=== PATIENT | female | born 1965 | race Caucasian/White ===

== ENCOUNTER → 2017-12-19 | Outpatient (CLI) | payer MEDICARE, MEDICAID ==
[~2017-12-19] MED LIST: ALDACTONE25 MG PO; ASPIR 8181 MG PO; ASPIRIN325 PO; AUGMENTIN 875-1 EACH PO; BUPROPION PO; BUTALB-ACETAMI1 EACH PO; CARVEDILOL12.5 MG PO; CARVEDILOL6.25 MG PO; CLOPIDOGREL75 MG PO; COREG6.25 MG PO; COUMADIN 3 MG TA3 M1 PO; DOXYCYCLINE 10100 MG PO; ELIQUIS5 MG PO; EPA DHA PO; FLONASE 0.05%50 MCG NASAL; HYDROCHLOROTHIA25 M1 PO; IBUPROFEN 800800 M1 PO; LASIX 40 MG TAB40 M2 PO; LISINOPRIL5 MG PO; MYRBETRIQ50 MG PO; OMEPRAZOLE40 MG PO; ONE-A-DAY WOMENS PO; PACERONE 200 M200 M1 PO; PAXIL10 MG PO; POTASSIUM20 PO; SORINE 80 MG TA80 M1 PO; TYLENOL325 MG PO; ZAROXOLYN 5MG TA5 MG PO; ZOLOFT100 MG PO; [UNRECOGNIZED DRUG - OTHER] PO; [UNRECOGNIZED DRUG - OTHER] PO
[2017-12-19 09:49] LABS: CALCIUM 9.6 mg/dL (8.5-10.1); CREATININE 0.9 mg/dL (0.6-1.3); POTASSIUM 4.2 mmol/L (3.5-5.1)
== END ==
LOC: M.LAB 09:15
PROVIDERS: Internal Medicine Cardiovascular Disease
DX: I48.0 Paroxysmal atrial fibrillation (principal); I13.0 Hypertensive heart and chronic kidney disease with heart failure and stage 1 through stage 4 chronic kidney disease, or unspecified chronic kidney disease; N18.1 Chronic kidney disease, stage 1; I50.43 Acute on chronic combined systolic (congestive) and diastolic (congestive) heart failure; E78.5 Hyperlipidemia, unspecified; I42.9 Cardiomyopathy, unspecified; Z90.49 Acquired absence of other specified parts of digestive tract; Z98.890 Other specified postprocedural states; Z90.710 Acquired absence of both cervix and uterus

== ENCOUNTER 2018-02-16 14:51 | Inpatient (IN) | payer MEDICARE, MEDICAID ==
[~2018-02-16] VITALS: Ht 162.6 cm; Wt 135.6 kg
[~2018-02-16 14:51] MED LIST changes: -AUGMENTIN 875-1 EACH PO; -CLOPIDOGREL75 MG PO; -MYRBETRIQ50 MG PO
[2018-02-16 15:08] VITALS: BP 123/78
[2018-02-16 15:36] LABS: ABSOLUTE BASOPHILS 0.1 thou/uL (0.0-0.2); ABSOLUTE EOSINOPHILS 0.3 thou/uL (0.0-0.7); ABSOLUTE LYMPHOCYTES 2.4 thou/uL (0.8-5.3); ABSOLUTE MONOCYTES 0.6 thou/uL (0.0-1.2); ABSOLUTE NEUTROPHILS 5.3 thou/uL (1.6-8.1); BASOPHILS 0.9 %; EOSINOPHILS 3.8 %; HEMATOCRIT 29.5 % (37.0-47.0); LYMPHOCYTES 27.5 %; MCH 30.9 pg (26.0-34.0); MCHC 33.9 g/dL (28.0-37.0); MCV 91.1 fL (80.0-100.0); MONOCYTES 7.3 %; MPV 7.2 fl. (7.2-11.1); NUCLEATED RBCS 0 /100WBC; PLATELET COUNT* 324 thou/uL (150-400); POLYS 60.5 %; RBC 3.24 mil/uL (4.20-5.00); RDW-CV 14.1 % (10.5-14.5); WBC 8.8 thou/uL (4.0-11.0)
[2018-02-16 15:46] LABS: CALCIUM 10.3 mg/dL (8.5-10.1); CREATININE 0.9 mg/dL (0.6-1.3)
[2018-02-16 15:55] LABS: ALBUMIN 3.4 g/dL (3.4-5.0); TOTAL BILIRUBIN 0.2 mg/dL (<0.1-1.0); TOTAL PROTEIN 8.2 g/dL (6.4-8.2)
[2018-02-16 17:07] LABS: URINE BILIRUBIN NEGATIVE (Negative); URINE BLOOD TRACE (Negative); URINE CLARITY CLEAR; URINE COLOR YELLOW; URINE GLUCOSE-RANDOM NEGATIVE (Negative); URINE KETONES NEGATIVE (Negative); URINE LEUKOCYTES-REFLEX NEGATIVE (Negative); URINE NITRITE-REFLEX NEGATIVE (Negative); URINE PROTEIN TRACE (Negative); URINE SPECIFIC GRAVITY 1.015 (1.005-1.030); URINE UROBILINOGEN 0.2 E.U./dl (0.2-1.0)
[2018-02-16 18:15] VITALS: BP 128/72
[2018-02-16 18:51] VITALS: BP 140/66
[2018-02-16 19:50] VITALS: BP 130/61
[2018-02-17 05:46] LABS: ABSOLUTE BASOPHILS 0.1 thou/uL (0.0-0.2); ABSOLUTE EOSINOPHILS 0.3 thou/uL (0.0-0.7); ABSOLUTE LYMPHOCYTES 2.1 thou/uL (0.8-5.3); ABSOLUTE MONOCYTES 0.6 thou/uL (0.0-1.2); ABSOLUTE NEUTROPHILS 3.3 thou/uL (1.6-8.1); BASOPHILS 0.9 %; EOSINOPHILS 5.4 %; HEMATOCRIT 26.1 % (37.0-47.0); HEMOGLOBIN 9.1 gm/dL (12.0-15.0); LYMPHOCYTES 32.3 %; MCH 31.3 pg (26.0-34.0); MCHC 34.7 g/dL (28.0-37.0); MCV 90.4 fL (80.0-100.0); MONOCYTES 9.5 %; MPV 7.5 fl. (7.2-11.1); NUCLEATED RBCS 0 /100WBC; PLATELET COUNT* 284 thou/uL (150-400); POLYS 51.9 %; RBC 2.89 mil/uL (4.20-5.00); WBC 6.4 thou/uL (4.0-11.0)
[2018-02-17 06:02] LABS: CALCIUM 9.3 mg/dL (8.5-10.1); CREATININE 0.7 mg/dL (0.6-1.3); POTASSIUM 3.3 mmol/L (3.5-5.1); TOTAL BILIRUBIN 0.2 mg/dL (<0.1-1.0); TOTAL PROTEIN 6.2 g/dL (6.4-8.2)
[2018-02-17 07:50] VITALS: BP 136/64
[2018-02-17 16:00] VITALS: BP 120/51
[2018-02-17 23:33] VITALS: BP 115/51
[2018-02-18 04:46] LABS: ABSOLUTE BASOPHILS 0.1 thou/uL (0.0-0.2); ABSOLUTE EOSINOPHILS 0.3 thou/uL (0.0-0.7); ABSOLUTE LYMPHOCYTES 2.2 thou/uL (0.8-5.3); ABSOLUTE MONOCYTES 0.5 thou/uL (0.0-1.2); BASOPHILS 1.1 %; EOSINOPHILS 5.7 %; HEMATOCRIT 26.1 % (37.0-47.0); LYMPHOCYTES 35.5 %; MCHC 34.4 g/dL (28.0-37.0); MCV 90.2 fL (80.0-100.0); MONOCYTES 8.4 %; MPV 7.2 fl. (7.2-11.1); NUCLEATED RBCS 0 /100WBC; PLATELET COUNT* 284 thou/uL (150-400); POLYS 49.3 %; RDW-CV 14.3 % (10.5-14.5); WBC 6.2 thou/uL (4.0-11.0)
[2018-02-18 04:58] LABS: ALBUMIN 2.8 g/dL (3.4-5.0); CALCIUM 8.8 mg/dL (8.5-10.1); CREATININE 0.7 mg/dL (0.6-1.3); POTASSIUM 3.8 mmol/L (3.5-5.1); TOTAL BILIRUBIN 0.3 mg/dL (<0.1-1.0); TOTAL PROTEIN 5.8 g/dL (6.4-8.2)
[2018-02-18 08:28] VITALS: BP 132/68
[2018-02-18 13:14] VITALS: BP 124/61
[2018-02-18 14:42] VITALS: BP 110/60
[2018-02-18 19:41] VITALS: BP 127/51
[2018-02-19 10:33] VITALS: BP 126/64
[2018-02-19 15:58] VITALS: BP 146/70
[2018-02-19 23:07] VITALS: BP 116/54
[2018-02-20 08:00] VITALS: BP 128/73
[2018-02-20] MEDS ORDERED: AUGMENTIN 875-1 EACH PO (14:54)
[2018-02-20] MEDS ORDERED: PACERONE 200 M200 M1 PO (14:56)
[2018-02-20 15:09] VITALS: BP 128/73
== END 2018-02-20 15:25 | disposition home or self-care (01) | DRG 602 ==
LOC: M.ERS 14:51 → M.3W 16:55 → M.TBA-ER 16:55 → M.3W 18:27
PROVIDERS: Nurse Practitioner Psychiatric/Mental Health; ADMIT Internal Medicine
DX: L03.032 Cellulitis of left toe (principal); I50.23 Acute on chronic systolic (congestive) heart failure; I48.92 Unspecified atrial flutter; Z68.43 Body mass index [BMI] 50.0-59.9, adult; I48.91 Unspecified atrial fibrillation; E87.6 Hypokalemia; E66.01 Morbid (severe) obesity due to excess calories; G80.9 Cerebral palsy, unspecified; Z90.710 Acquired absence of both cervix and uterus; Z88.8 Allergy status to other drugs, medicaments and biological substances; Z91.012 Allergy to eggs; Z82.49 Family history of ischemic heart disease and other diseases of the circulatory system; Z79.82 Long term (current) use of aspirin; Z79.899 Other long term (current) drug therapy

== ENCOUNTER → 2018-06-08 | Outpatient (CLI) | payer MEDICARE, MEDICAID ==
[~2018-06-08] MED LIST changes: +AUGMENTIN 875-1 EACH PO; +CLOPIDOGREL75 MG PO; +MYRBETRIQ50 MG PO
== END ==
LOC: M.ULTRA 05-29 09:00
DX: N28.9 Disorder of kidney and ureter, unspecified (principal); I48.0 Paroxysmal atrial fibrillation; I11.0 Hypertensive heart disease with heart failure; I50.22 Chronic systolic (congestive) heart failure

== ENCOUNTER 2018-07-08 08:11 | Inpatient (IN) | payer MEDICARE, MEDICAID ==
[~2018-07-08] VITALS: Ht 162.6 cm; Wt 154.7 kg
[2018-07-08 08:11] VITALS: BP 123/67
[~2018-07-08 08:11] MED LIST changes: -CLOPIDOGREL75 MG PO; -MYRBETRIQ50 MG PO
[2018-07-08 08:38] LABS: ABSOLUTE BASOPHILS 0.1 thou/uL (0.0-0.2); ABSOLUTE EOSINOPHILS 0.4 thou/uL (0.0-0.7); ABSOLUTE LYMPHOCYTES 1.2 thou/uL (0.8-5.3); ABSOLUTE MONOCYTES 0.6 thou/uL (0.0-1.2); ABSOLUTE NEUTROPHILS 4.2 thou/uL (1.6-8.1); BASOPHILS 0.9 %; EOSINOPHILS 6.1 %; HEMATOCRIT 29.3 % (37.0-47.0); HEMOGLOBIN 9.7 gm/dL (12.0-15.0); MCHC 33.2 g/dL (28.0-37.0); MCV 90.4 fL (80.0-100.0); MONOCYTES 9.4 %; NUCLEATED RBCS 0 /100WBC; PLATELET COUNT* 233 thou/uL (150-400); POLYS 64.6 %; RBC 3.24 mil/uL (4.20-5.00); RDW-CV 14.8 % (10.5-14.5); WBC 6.4 thou/uL (4.0-11.0)
[2018-07-08 08:47] LABS: ANION GAP 6 mmol/L (7-16); BUN 21 mg/dL (7-18); CALCIUM 8.9 mg/dL (8.5-10.1); CHLORIDE 107 mmol/L (98-107); CO2 25 mmol/L (21-32); CREATININE 0.7 mg/dL (0.6-1.3); GLUCOSE 96 mg/dL (70-99); POTASSIUM 4.1 mmol/L (3.5-5.1); SODIUM 138 mmol/L (136-145)
[2018-07-08 08:49] LABS: APTT 31.5 Seconds (25.0-31.3); INR 1.1; PROTIME 10.3 Seconds (9.20-11.50)
[2018-07-08 08:58] LABS: ALBUMIN 3.5 g/dL (3.4-5.0); ALKALINE PHOSPHATASE 72 U/L (46-116); NT-PRO BRAIN NAT PEPTIDE 404 pg/mL (<300); SGOT 28 U/L (15-37); SGPT 40 U/L (30-65); TOTAL BILIRUBIN 0.2 mg/dL (<0.1-1.0); TOTAL PROTEIN 7.1 g/dL (6.4-8.2); TROPONIN-I LEVEL <0.06 ng/mL (<0.06)
[2018-07-08 09:07] LABS: BE -3.1 mmol/L (-2 to +3); HCO3 22.3 mmol/L (22.0-26.0); PCO2 41.4 mmHg (35.0-45.0); PO2 106.7 mmHg (75.0-100.0); pH 7.349 (7.340-7.450)
[2018-07-08] MEDS ORDERED: MYRBETRIQ50 MG PO (10:33)
[2018-07-08] MEDS ORDERED: CLOPIDOGREL75 MG PO (10:33)
--- NOTE | 2018-07-08 13:08 | NUR ---
PT RECIEVED LUNCH TRAY AT THIS TIME.
[2018-07-08 13:40] VITALS: BP 142/44
[2018-07-08 14:43] VITALS: BP 153/78
[2018-07-08 15:28] VITALS: BP 137/69
--- NOTE | 2018-07-08 15:45 | NUR ---
PT ARRIVED FROM ER. PT ORIENTED TO ROOM,CALL LIGHT WITHIN REACH,PT DENIES NEEDS. LOPEZ CATH DRAINING CLEAR YELLOW URINE
--- NOTE | 2018-07-08 17:03 | 2DMMODE ---
[place] [address] 2 D/M-MODE ECHOCARDIOGRAM Name: MILEY GREGORIO TIESHA Room: [address] IN [facility]#: [id number] Admission: 07/08/18 Attend Phys: Anais Almanzar, Discharge: Date of : 69 Date of Service: 07/08/18 1703 Report #: [id number] THIS REPORT FOR: //name// APPROVED REPORT Study performed: 07/08/2018 13:33:18 EXAM: Comprehensive 2D, Doppler, and color-flow Echocardiogram Patient Location: In-Patient Room #: er Status: routine BSA: 2.45 HR: 80 bpm BP: 142/44 mmHg Rhythm: NSR Other Information Technically limited study due to body habitus, inability to position patient. Indications Cardiomyopathy Echo Enhancing Agent Indication: Endocardial border delineation Agent(s) / Amount(s) Used: Optison 3 cc 2D Dimensions LVEF(%): 45.46 (>50%) IVSd: 11.49 (7-11mm) LVOT Diam: 22.14 (18-24mm) LVDd: 63.81 mm PWd: 9.22 (7-11mm) Ascending Ao: 33.33 (22-36mm) LVDs: 49.03 (25-40mm) Aortic Root: 33.24 mm Mueller's LVEF: 45.46 % Aortic Valve AoV Peak Michael.: 2.19 m/s AO Peak Gr.: 19.25 mmHg LVOT Max P.27 mmHg AO Mean Gr.: 10.82 mmHg LVOT Mean P.89 mmHg LVOT Max V: 0.90 m/s AO V2 VTI: 44.91 cm LVOT Mean V: 0.65 m/s DIANA (VTI): 1.81 cm2 LVOT V1 VTI: 21.16 [place] [address] 2 D/M-MODE ECHOCARDIOGRAM Name: MILEY GREGORIO TIESHA Room: [address] [place] ..#: [id number] Admission: 07/08/18 Attend Phys: Anais Almanzar, Discharge: Date of : 69 Date of Service: 07/08/18 1703 Report #: [id number] E/A Ratio: 1.13 MV Decel. Time: 265.21 ms MV E Max Michael.: 1.32 m/s MV PHT: 76.91 ms MVA (PHT): 2.86 cm2 TDI E/Lateral E': 7.76 E/Medial E': 8.80 Medial E' Michael.: 0.15 m/s Lateral E' Michael.: 0.17 m/s Pulmonary Valve PV Peak Michael.: 1.06 m/s PV Peak Gr.: 4.52 mmHg Left Ventricle Left ventricle is mildly dilated. There is normal left ventricular wall thickness. Left ventricular systolic function is moderately decreased. LVEF is 40-45%. The left ventricular diastolic function is normal. Right Ventricle The right ventricle is normal size. The right ventricular systolic function is normal. Atria The left atrium size is normal. The right atrium size is normal. Aortic Valve Mild aortic valve sclerosis. No aortic regurgitation is present. No hemodynamically significant valvular aortic stenosis. Mitral Valve The mitral valve is normal in structure. Trace mitral regurgitation. No evidence of mitral valve stenosis. Tricuspid Valve The tricuspid valve is normal in structure. Unable to assess PA pressure. Trace tricuspid regurgitation. Pulmonic Valve The pulmonary valve is normal in structure. There is no pulmonic valvular regurgitation. Great Vessels The aortic root is normal in size. [place] [address] 2 D/M-MODE ECHOCARDIOGRAM Name: MILEY GREGORIO Room: [address] [place] ..#: [id number] Admission: 07/08/18 Attend Phys: Anais Almanzar, Discharge: Date of : 69 Date of Service: 07/08/18 1703 Report #: [id number] collapses with >50% inspiration Pericardium There is no pericardial effusion. <Conclusion> Left ventricle is mildly dilated. There is normal left ventricular wall thickness. Left ventricular systolic function is moderately decreased. LVEF is 40-45%. The left ventricular diastolic function is normal. The right ventricle is normal size. The left atrium size is normal. Mild aortic valve sclerosis. No aortic regurgitation is present. No hemodynamically significant valvular aortic stenosis. The mitral valve is normal in structure. The tricuspid valve is normal in structure. IVC is normal in size and collapses with >50% inspiration There is no pericardial effusion. <ELECTRONICALLY SIGNED> By: Jeremías Richard MD, FACC 07/08/18 170 02 02 Jeremías Richard MD, FACC /INF
--- NOTE | 2018-07-08 17:34 | EKG ---
[place] [address] ELECTROCARDIOGRAM REPORT Name: MILEY GREGORIO Room: [address] ADM IN .R.#: [id number] Admission: 07/08/18 Attend Phys: Anais Almanzar MD Discharge: Date of : 69 Report #: [id number] THIS REPORT FOR: //name// [facility] ED Test Date: 2018-07-08 Test Time: 08:17:43 Pat Name: MILEY GREGORIO Department: Room: [facility] Gender: F Club Director: JG : 1965 Requested By: Hira Obregon Order Number: [id number] MD: Jeremías Richard Measurements Intervals [place] Rate: 78 P: 42 OR: 172 QRS: 48 QRSD: 126 T: 147 QT: 409 QTc: 466 Interpretive Statements Sinus rhythm Nonspecific intraventricular conduction delay Abnormal inferior Q waves Nonspecific T abnormalities, lateral leads Compared to ECG 10/15/2017 09:51:11 Inferior Q waves now present Q waves now present T-wave abnormality now present Early repolarization no longer present Possible ischemia no longer present Electronically Signed On 07-08-2018 17:34:31 CDT by Jeremías Richard [email or web address] <ELECTRONICALLY SIGNED> By: Jeremías Richard MD, [facility] 07/08/18 1734 6 6 Jeremías Richard MD, [facility] /EPI
--- NOTE | 2018-07-08 17:48 | NUR ---
PT TO ROOM THIS AFTERNOON.PT UP IN CHAIR WITH STEADY GAIT AND SB ASSIST. LOPEZ CATH DRAINING CLEAR YELLOW URINE. PT REPOSITIONS SELF WELL IN BED.
[2018-07-08 20:00] VITALS: BP 124/63; BP 146/70
[2018-07-09 03:58] LABS: ABSOLUTE MONOCYTES 0.8 thou/uL (0.0-1.2); BASOPHILS 0.5 %; EOSINOPHILS 0.1 %; HEMATOCRIT 27.1 % (37.0-47.0); HEMOGLOBIN 9.1 gm/dL (12.0-15.0); LYMPHOCYTES 13.1 %; MCH 30.1 pg (26.0-34.0); MCHC 33.6 g/dL (28.0-37.0); MCV 89.5 fL (80.0-100.0); MONOCYTES 10.4 %; MPV 8.1 fl. (7.2-11.1); NUCLEATED RBCS 0 /100WBC; PLATELET COUNT* 220 thou/uL (150-400); POLYS 75.9 %; RBC 3.03 mil/uL (4.20-5.00); RDW-CV 14.7 % (10.5-14.5); WBC 7.9 thou/uL (4.0-11.0)
[2018-07-09 04:14] LABS: CALCIUM 8.4 mg/dL (8.5-10.1); CREATININE 0.7 mg/dL (0.6-1.3); POTASSIUM 3.8 mmol/L (3.5-5.1)
--- NOTE | 2018-07-09 04:46 | NUR ---
PATIENT ALERT AND ORIENTED X4 ON HOURLY ROUNDS. DENIES PAIN. LOPEZ CATHETER PATENT, CLEAR YELLOW RETURN. VITALS STABLE ON ROOM AIR. WILL CONTINUE TO MONITOR.
[2018-07-09 08:15] VITALS: BP 137/62
[2018-07-09 15:46] VITALS: BP 135/61
--- NOTE | 2018-07-09 16:34 | NUR ---
PT.SLEEPING SOUNDLY . CM DID NOT AWAKEN. WILL SEE TOMORROW.
--- NOTE | 2018-07-09 18:05 | NUR ---
ALERT AND ORIENTED X4. UP WITH ASSIST X1-2 WITH FOREARM CRUTCHES. IV IS PATENT AND SALINE LOCKED. DENIES PAIN. TOLERATING DIET. UP IN CHAIR THIS AFTERNOON. WORKED WITH PT AND OT THIS SHIFT. VSS ON ROOM AIR. HOURLY ROUNDS HAVE BEEN MAINTAINED THROUGHOUT SHIFT. CALL LIGHT IS WITHIN REACH. NURSING WILL CONTINUE TO MONITOR.
[2018-07-09 20:00] VITALS: BP 113/57
--- NOTE | 2018-07-10 04:32 | NUR ---
PATIENT ALERT AND ORIENTED X4. TYLENOL GIVEN FOR HEADACHE WITH GOOD RESULTS REPORTED. UP WITH ASSIST X2-3. LOPEZ CATHETER PATENT, BLOODY RETURN. PHYSICIAN AWARE. VITAL STABLE ON ROOM AIR. WILL CONTINUE TO MONITOR.
[2018-07-10 07:01] LABS: URINE BILIRUBIN NEGATIVE (Negative); URINE BLOOD 3+ (Negative); URINE CLARITY CLOUDY; URINE COLOR RED; URINE GLUCOSE-RANDOM NEGATIVE (Negative); URINE KETONES NEGATIVE (Negative); URINE LEUKOCYTES-REFLEX NEGATIVE (Negative); URINE NITRITE-REFLEX NEGATIVE (Negative); URINE PROTEIN 3+ (Negative); URINE SPECIFIC GRAVITY >= 1.030 (1.005-1.030); URINE UROBILINOGEN 0.2 E.U./dl (0.2-1.0)
[2018-07-10 07:02] LABS: BACTERIA-REFLEX 1-9 Few /HPF (None Seen); CASTS None Seen /LPF (None Seen); CRYSTALS None Seen /LPF (None Seen); MUCUS None Seen strn/LPF (None Seen); SQUAMOUS 0-3 Few /LPF (0-3); URINE RBC >20 Many /HPF (0-2); URINE WBC-REFLEX 0-5 Rare /HPF (0-5)
[2018-07-10 08:30] VITALS: BP 123/53
[2018-07-10 09:29] VITALS: BP 123/53
--- NOTE | 2018-07-10 13:45 | NUR ---
PT.UP IN CHAIR BY THERAPIST. SHE WAS ALERT AND ORIENTED. SHE SAID HER FRIEND YOLY ,IS GOING TO PICK HER UP BUT HAS A VAN. SHE WILL NEED A STEP STOOL TO GET INTO THE VAN. NOT SURE IF THIS IS SAFE PLAN. SHE HAS CAREGIVERS FOR 4 HRS/DAY FROM [employer] THROUGH HER MEDICAID. SHE EMPLOYS [employer]OL[employer] PRIVATELY. IS TO RECEIVE P.T.THROUGH [employer]. WILL CONFIRM WITH THEM. SHE SAID IT IS ALREADY SET UP. SHE SAID SHE LIVES IN AN APT.WITHOUT STAIRS. WILL DISCUSS WITH PT.ABOUT TRANSPORTATION.
--- NOTE | 2018-07-10 15:40 | NUR ---
PATIENT LEFT UNIT AT 1500. ALERT AND ORIENTED X4. UP WITH MAX ASSIST OF 2 WITH FOREARM CRUTCHES AND GAIT BELT. DENIES PAIN AND NAUSEA. IV DC'D. TOLERATING DIET. ALL PERSONAL ITEMS LEFT WITH PATIENT. DISCHARGE INSTRUCTIONS, PRESCRIPTIONS, AND NEW MEDICATION INFORMATION SENT WITH PATIENT. VSS ON ROOM AIR. HOURLY ROUNDS HAVE BEEN MAINTAINED THROUGHOUT SHIFT. LEFT WITH FRIEND VIA CAR.
== END 2018-07-10 15:00 | disposition home or self-care (01) | DRG 602 ==
LOC: M.ERS 08:11 → M.ORTHSURG 09:11 → M.TBA-ER 09:11 → M.ORTHSURG 14:14
PROVIDERS: Family Medicine; Internal Medicine; ADMIT Internal Medicine
DX: L03.115 Cellulitis of right lower limb (principal); I50.23 Acute on chronic systolic (congestive) heart failure; I42.9 Cardiomyopathy, unspecified; Z68.43 Body mass index [BMI] 50.0-59.9, adult; I48.0 Paroxysmal atrial fibrillation; I11.0 Hypertensive heart disease with heart failure; E66.01 Morbid (severe) obesity due to excess calories; G80.8 Other cerebral palsy; G47.33 Obstructive sleep apnea (adult) (pediatric); R31.9 Hematuria, unspecified; Z91.012 Allergy to eggs; Z88.8 Allergy status to other drugs, medicaments and biological substances; Z91.018 Allergy to other foods; Z79.2 Long term (current) use of antibiotics; Z79.82 Long term (current) use of aspirin; Z79.899 Other long term (current) drug therapy; Z90.710 Acquired absence of both cervix and uterus; Z90.49 Acquired absence of other specified parts of digestive tract; Z82.49 Family history of ischemic heart disease and other diseases of the circulatory system

== ENCOUNTER → 2018-08-04 | Outpatient (CLI) | payer MEDICARE, MEDICAID ==
[~2018-08-04] MED LIST changes: +CLOPIDOGREL75 MG PO; +MYRBETRIQ50 MG PO
[2018-08-04 10:32] LABS: ALBUMIN 3.7 g/dL (3.4-5.0)
[2018-08-04 10:53] LABS: DIRECT BILIRUBIN 0.1 mg/dL (<0.1-0.3); TOTAL BILIRUBIN 0.2 mg/dL (<0.1-1.0); TOTAL PROTEIN 7.4 g/dL (6.4-8.2)
--- NOTE | 2018-08-21 11:13 | PF ---
[address] [address] PULMONARY FUNCTION REPORT Name: MILEY GREGORIO Room: [facility]#: [id number] Admission: 08/04/18 Attend Phys: KAISER Trent Discharge: Date of : 69 Report #: [id number] THIS REPORT FOR: //name// CC: Rene Ware Case REFERRING PHYSICIAN: KAISER Trent. INTERPRETATION: Expiratory flow rates are reduced. The FEV1 is 0.97. Forced vital capacity reduced at 1.28. After inhaled bronchodilator, no change in the FEV1. The [id number] shows a dramatic improvement after inhaled bronchodilator going from 0.77 liters per second to 1.11 liters per second, which is a 44% improvement from baseline. Lung volumes were not performed. Diffusion capacity is severely reduced. IMPRESSION: 1. Spirometry consistent with severe obstructive airways disease with a significant improvement after inhaled bronchodilator, reflecting a component of reactive airways. 2. The lung volumes were not performed, but a forced vital capacity is severely reduced suggestive of a moderate to moderately severe restrictive component, especially in view of her body size. 3. Diffusion capacity is severely reduced. <ELECTRONICALLY SIGNED> By: Sumit Rendon MD 08/21/18 1113 1106 [id number] Rendon MD /nt
== END ==
LOC: M.PUL 07-30 09:30
PROVIDERS: Nurse Practitioner Family
DX: I51.7 Cardiomegaly (principal); Z79.899 Other long term (current) drug therapy

== ENCOUNTER → 2019-12-03 | Outpatient (CLI) | payer MEDICARE, MEDICAID | LOC: M.RAD 11:13 | DX: J98.11 Atelectasis (principal); J02.9 Acute pharyngitis, unspecified; R53.83 Other fatigue; J34.89 Other specified disorders of nose and nasal sinuses; J44.9 Chronic obstructive pulmonary disease, unspecified; I11.9 Hypertensive heart disease without heart failure ==

== ENCOUNTER → 2020-12-08 | Outpatient (CLI) | payer MEDICARE, MEDICAID | LOC: M.RAD 10:50 | PROVIDERS: ATTEND Internal Medicine | DX: I51.7 Cardiomegaly (principal) ==